=== PATIENT | male | born 1970 | race Caucasian/White ===

== ENCOUNTER 2024-08-15 10:17 | Emergency (ER) | payer OTHER, SELFPAY ==
[2024-08-15 10:27] VITALS: BP 143/83; PULSE 75; RESP 16; TEMP 36.6; O2SAT 98
--- NOTE | 2024-08-15 10:30 | ED_ITS ---
HPI - URI/Sore Throat General Chief Complaint: Upper Respiratory Infection Stated Complaint: Flu Symptoms Time Seen by Provider: 08/15/24 10:30 Source: patient Mode of arrival: ambulatory Limitations: no limitations History of Present Illness HPI Narrative: 54-year-old male presents for work note. Patient reports that he tested positive for COVID at home. Missed 3 days of work and needs note to return. Reports he continues to have some mild congestion. COVID symptoms for 4 days. Afebrile. All systems reviewed and negative except as noted above. Related Data Home Medications ?Medication ?Instructions ?Recorded ?Confirmed ?Last Taken ?Type No Home Medications 08/15/24 08/15/24 Unknown History Allergies Allergy/AdvReac Type Severity Reaction Status Date / Time No Known Allergies Allergy Verified 08/15/24 10:29 Review of Systems Review of Systems: CONSTITUTIONAL: Denies fever, chills, or sweats. EYES: Denies visual changes, redness, or discharge. ENT: Reports rhinorrhea, congestion. Denies sore throat, or otalgia. CARDIOVASCULAR: Denies chest pain, palpitations, or edema. RESPIRATORY: Denies cough or dyspnea. GASTROINTESTINAL: Denies abdominal pain, nausea, vomiting, or diarrhea. GENITOURINARY: Denies dysuria or hematuria. SKIN: Denies rash or itching. MUSCULOSKELETAL: Denies back pain, joint pain, or myalgia. NEUROLOGIC: Denies headache, numbness, or weakness. PSYCHIATRIC: Denies anxiety or depression. All other systems reviewed are negative, except as documented in HPI. PMFSH Comments At time of signature, agree with nursing past medical, surgical, social and family history. There is no relevant family history pertinent to the presenting complaint. Exam Narrative: GENERAL: This is a well-nourished, well-developed patient, in no apparent distress. HEAD: normocephalic, atraumatic. EYES: PERRL. Sclera clear/white. Vision is grossly intact. EARS: External ears normal, auditory canals clear and without drainage, TMs normal without perforation. Hearing grossly intact. NOSE: External nose normal with mild congestion, clear nasal drainage THROAT: Mucous membranes moist, posterior pharynx clear. NECK: Neck supple, non-tender without lymphadenopathy, masses or thyromegaly. CARDIOVASCULAR: Regular rate and rhythm without murmurs, gallops, or rubs. RESPIRATORY: Clear to auscultation. Breath sounds equal bilaterally. No wheezes, rales, or rhonchi. SKIN: warm, Dry, intact with no suspicious lesions or rash, good texture and turgor. NEURO: awake, alert, and oriented to person, place and time. There were no obvious focal neurologic abnormalities. EXTREMITIES: No joint tenderness, effusion, or edema noted. Course Course Level of Care: Express Care Visit Vital Signs Vital signs: Vital Signs Temperature 36.6 C 08/15/24 10: Pulse Rate 75 08/15/24 10:27 Respiratory Rate 16 08/15/24 10:27 Blood Pressure 143/83 H 08/15/24 10: Pulse Oximetry 98 08/15/24 10: Temperature 36.6 C 08/15/24 10: Pulse Rate 75 08/15/24 10:27 Respiratory Rate 16 08/15/24 10:27 Blood Pressure 143/83 H 08/15/24 10:27 Pulse Oximetry 98 08/15/24 10:27 Reviewed MDM - URI/Sore Throat MDM Narrative Medical decision making narrative: Positive COVID test at home hearing. Symptoms for 4-5 days. Recommend [id number] pseudoephedrine to treat congestion. Patient is well- appearing, nontoxic. Please be advised this is a medical document. It is intended for [id number] communication. It is written in medical language and may contain unfamiliar abbreviations or verbiage. Medical documents are intended to carry relevant information, facts as evident, and the clinical opinion of the practitioner at the time of the encounter. This report may have been done utilizing a voice recognition system. Attempts have been made to correct errors. However, there may be uncorrected grammatical, spelling, and recognition errors present. The file time of this note does not necessarily represent the time of service. Differential Diagnosis Differential diagnosis: Likely sinusitis Discharge Plan Discharge Clinical Impression: COVID-19, Acute viral sinusitis Patient Disposition: Home, Self-Care Condition: Stable Instructions: Sinusitis (ED) Additional Instructions: Your symptoms are viral and may last 10-14 days. Purchase [id number] pseudoephedrine and take as directed on packaging. This medication is found behind the pharmacy counter. Take Tylenol or ibuprofen every 6-8 hours as needed for pain and fever. Drink at least 64 oz of water a day. See your doctor if symptoms are not improving. Patient Language: Belarusian Prescriptions: No Action No Home Medications Follow-up/Referrals: PHYSICIAN,MARKETING RECRUITER [Primary Care Provider] - Stand Alone Forms: Work/School Release IP Time of Disposition: 10:39
== END 2024-08-15 10:44 | disposition home or self-care (01) ==
PROVIDERS: Emergency Provider Nurse Practitioner Family
DX: U07.1 COVID-19 (principal); J01.90 Acute sinusitis, unspecified
CPT/HCPCS: 99202; G0463

== ENCOUNTER 2025-02-03 18:59 | Emergency (ER) | payer OTHER, SELFPAY ==
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
[2025-02-03 19:07] VITALS: BP 126/93; PULSE 72; RESP 16; TEMP 36.7; O2SAT 97
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
== END 2025-02-03 19:51 | disposition home or self-care (01) ==
PROVIDERS: Emergency Provider Nurse Practitioner Family
DX: S46.912A Strain of unspecified muscle, fascia and tendon at shoulder and upper arm level, left arm, initial encounter (principal); S16.1XXA Strain of muscle, fascia and tendon at neck level, initial encounter; V43.53XA Car driver injured in collision with pick-up truck in traffic accident, initial encounter; R51.9 Headache, unspecified
CPT/HCPCS: 72040; 99213; G0463

== ENCOUNTER 2025-03-03 08:04 | Emergency (ER) | payer OTHER, SELFPAY ==
[2025-03-03 08:12] VITALS: BP 137/95; PULSE 68; RESP 16; TEMP 36.3; O2SAT 100
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
== END 2025-03-03 08:34 | disposition home or self-care (01) ==
PROVIDERS: Emergency Provider Nurse Practitioner
DX: S16.1XXD Strain of muscle, fascia and tendon at neck level, subsequent encounter (principal); V89.2XXD Person injured in unspecified motor-vehicle accident, traffic, subsequent encounter
CPT/HCPCS: 99213; G0463